=== PATIENT | male | born 2005 | race Caucasian/White ===

== ENCOUNTER 2024-05-21 12:29 | Emergency (ER) | payer BC ==
[2024-05-21] MEDS ORDERED: Lidocaine Viscous Sol 2% 15 ml UD Cup ONE (12:35)
[2024-05-21] MEDS ORDERED: Benzocaine 20% Spray 60 ML CAN TOP SCH (13:00)
[2024-05-21] MEDS ORDERED: Racepinephrine 2.25% 0.5 ML NEB ONE (13:29)
== END 2024-05-21 15:05 | disposition home or self-care (01) ==
LOC: CSHERS 12:29
DX: R06.1 Stridor (principal); J02.9 Acute pharyngitis, unspecified; J45.909 Unspecified asthma, uncomplicated; Z55.6 Problems related to health literacy
CPT/HCPCS: 70360; 87081; 87430